=== PATIENT | male | born 1955 | race Caucasian/White ===

== ENCOUNTER 2020-05-02 07:31 | Outpatient (REF) | payer BC, SELFPAY ==
[2020-05-02 11:15] LABS: MANUAL DIFF FLAG NO
[2020-05-02 11:19] LABS: Basophils Percent Auto 0.3 % (0-2); Eosinophils Absolute Auto 0.1 X10*3/uL (0.0-0.4); Eosinophils Percent Auto 1.6 % (0-4); Hematocrit 41.7 % (42-52); Hemoglobin 13.9 g/dl (14.0-18.0); Imm Gran Abs Auto 0.01 X10*3/uL (0.00-0.03); Imm Gran Pct Auto 0.2 % (0.0-0.4); Lymphocytes Absolute Auto 1.5 X10*3/uL (1.2-4.9); Lymphocytes Percent Auto 24.4 % (20-40); Mean Corpuscular HGB Conc 33.3 g/dl (31.0-36.0); Mean Corpuscular Hemoglobin 30.5 pg (27.0-33.0); Mean Corpuscular Volume 91.6 fL (80-98); Mean Platelet Volume 10.8 fL (9.4-12.4); Monocytes Absolute Auto 0.6 X10*3/uL (0.1-1.2); Neutrophils Absolute Auto 4.1 X10*3/uL (2.0-8.3); Neutrophils Percent Auto 64.5 % (45-73); Platelet Count 210 X10*3/uL (160-400); Red Blood Count 4.55 X10*6/uL (4.60-5.80); Red Cell Distribution Width 12.3 % (11.0-16.0); White Blood Count 6.3 X10*3/uL (4.8-10.8)
[2020-05-02 11:45] LABS: Alanine Aminotransferase 38 U/L (0-40); Albumin Level 4.1 g/dL (3.5-5.0); Alkaline Phosphatase 83 U/L (39-117); Anion Gap 11 (12-20); Aspartate Amino Transferase 22 U/L (5-37); Bilirubin Total 1.2 mg/dL (0.0-1.0); Blood Urea Nitrogen 14 mg/dL (9-16); Calcium 10.1 mg/dL (8.4-10.2); Carbon Dioxide 31 mmol/L (22-29); Chloride 101 mmol/L (96-108); Cholesterol 161 mg/dL; Estimated Glomerular Filt Rate > 60; Glucose Fasting 97 mg/dL (60-99); HDL Cholesterol 30 mg/dL; LDL Cholesterol Calculated 105 mg/dl; Potassium 3.9 mmol/l (3.3-5.1); Sodium 139 mmol/L (135-145); Total Protein 6.4 g/dL (6.5-8.0); Triglycerides 132 mg/dL
[2020-05-02 12:08] LABS: Prostate Specific Antigen 1.25 ng/mL (<0.05-4.0); Vitamin D 25-OH Total 30.4 ng/mL (>30)
== END 2020-05-02 07:32 | disposition home or self-care (01) ==
LOC: HO.MANLDS 07:31
PROVIDERS: PCP Internal Medicine; Visit Provider Internal Medicine
DX: Z00.00 Encounter for general adult medical examination without abnormal findings (principal)
CPT/HCPCS: 36415; 80053; 80061; 82306; 84153; 85025

== ENCOUNTER 2020-11-22 07:40 | Outpatient (REF) | payer BC, SELFPAY ==
[2020-11-22 11:48] LABS: Hematocrit 47.9 % (42-52); Hemoglobin 15.5 g/dl (14.0-18.0); Mean Corpuscular HGB Conc 32.4 g/dl (31.0-36.0); Mean Corpuscular Hemoglobin 29.9 pg (27.0-33.0); Mean Corpuscular Volume 92.3 fL (80-98); Platelet Count 206 X10*3/uL (160-400); Red Blood Count 5.19 X10*6/uL (4.60-5.80); Red Cell Distribution Width 12.6 % (11.0-16.0); White Blood Count 7.8 X10*3/uL (4.8-10.8)
[2020-11-22 12:05] LABS: ~HepC Num1 0.06 S/CO (0.00-0.79); ~Hepatitis C Antibody Nonreactive (Nonreactive)
[2020-11-22 12:07] LABS: Prostate Specific Antigen 1.29 ng/mL (<0.05-4.0)
[2020-11-22 12:15] LABS: Alanine Aminotransferase 39 U/L (0-40); Albumin Level 4.2 g/dL (3.5-5.0); Alkaline Phosphatase 100 U/L (39-117); Anion Gap 12 (12-20); Aspartate Amino Transferase 23 U/L (5-37); Bilirubin Total 1.4 mg/dL (0.0-1.0); Blood Urea Nitrogen 13 mg/dL (9-16); Calcium 11.1 mg/dL (8.4-10.2); Carbon Dioxide 30 mmol/L (22-29); Chloride 108 mmol/L (96-108); Cholesterol 183 mg/dL; Estimated Glomerular Filt Rate > 60; Glucose Random 87 mg/dL (60-115); HDL Cholesterol 30 mg/dL; LDL Cholesterol Calculated 103 mg/dl; Potassium 4.7 mmol/L (3.3-5.1); Sodium 145 mmol/L (135-145); Total Protein 6.8 g/dL (6.5-8.0); Triglycerides 252 mg/dL
== END 2020-11-22 07:41 | disposition home or self-care (01) ==
LOC: HO.MANLDS 07:40
PROVIDERS: Visit Provider Internal Medicine
DX: E78.00 Pure hypercholesterolemia, unspecified (principal); Z11.59 Encounter for screening for other viral diseases; Z12.5 Encounter for screening for malignant neoplasm of prostate
CPT/HCPCS: 36415; 80053; 80061; 84153; 85027; 86803

== ENCOUNTER 2021-01-23 11:57 | Outpatient (REF) | payer MEDICARE, BC, SELFPAY ==
[2021-01-23 13:38] LABS: Uric Acid 7.6 mg/dL (3.4-7.0)
== END 2021-01-23 11:58 | disposition home or self-care (01) ==
LOC: HO.MANLDS 11:57
PROVIDERS: PCP Internal Medicine; Visit Provider Internal Medicine
DX: M10.9 Gout, unspecified (principal)
CPT/HCPCS: 36415; 84550

== ENCOUNTER 2022-10-16 07:31 | Outpatient (REF) | payer MEDICARE, BC, SELFPAY ==
[2022-10-16 11:16] LABS: MANUAL DIFF FLAG NO
[2022-10-16 11:34] LABS: Basophils Percent Auto 0.3 % (0-2); Eosinophils Absolute Auto 0.1 X10*3/uL (0.0-0.4); Eosinophils Percent Auto 1.9 % (0-4); Imm Gran Abs Auto 0.01 X10*3/uL (0.00-0.03); Imm Gran Pct Auto 0.1 % (0.0-0.4); Lymphocytes Absolute Auto 1.5 X10*3/uL (1.2-4.9); Lymphocytes Percent Auto 21.6 % (20-40); Mean Corpuscular HGB Conc 32.6 g/dl (31.0-36.0); Mean Corpuscular Hemoglobin 29.8 pg (27.0-33.0); Mean Corpuscular Volume 91.3 fL (80.0-98.0); Mean Platelet Volume 11.4 fL (9.4-12.4); Monocytes Absolute Auto 0.6 X10*3/uL (0.1-1.2); Monocytes Percent Auto 9.1 % (2-11); Neutrophils Absolute Auto 4.6 x10*3/uL (2.0-8.3); Platelet Count 185 X10*3/uL (160-400); Red Blood Count 5.04 X10*6/uL (4.60-5.80); Red Cell Distribution Width 12.7 % (11.0-16.0); White Blood Count 6.9 X10*3/uL (4.8-10.8)
[2022-10-16 12:14] LABS: Estimated Average Glucose 94 mg/dL; Hemoglobin A1c % 4.9 %
[2022-10-16 12:43] LABS: Alanine Aminotransferase 40 U/L (0-40); Albumin Level 4.1 g/dL (3.5-5.0); Alkaline Phosphatase 104 U/L (39-117); Anion Gap 11 (12-20); Aspartate Amino Transferase 21 U/L (5-37); Bilirubin Total 1.6 mg/dL (0.0-1.0); Blood Urea Nitrogen 12 mg/dL (9-16); Calcium 11.6 mg/dL (8.4-10.2); Carbon Dioxide 31 mmol/L (22-29); Chloride 107 mmol/L (96-108); Cholesterol 152 mg/dL; Estimated Glomerular Filt Rate > 60; Glucose Random 87 mg/dL (60-115); HDL Cholesterol 30 mg/dL; LDL Cholesterol Calculated 84 mg/dl; Potassium 4.5 mmol/L (3.3-5.1); Sodium 144 mmol/L (135-145); Total Protein 6.5 g/dL (6.5-8.0); Triglycerides 191 mg/dL; Uric Acid 7.7 mg/dL (3.4-7.0)
== END 2022-10-16 07:32 | disposition home or self-care (01) ==
LOC: HO.MANLDS 07:31
PROVIDERS: Visit Provider Internal Medicine
DX: E78.00 Pure hypercholesterolemia, unspecified (principal); E88.81 Metabolic syndrome and other insulin resistance; I10 Essential (primary) hypertension; M10.071 Idiopathic gout, right ankle and foot
CPT/HCPCS: 36415; 80053; 80061; 83036; 84550; 85025

== ENCOUNTER 2023-02-08 14:43 | Outpatient (REF) | payer MEDICARE, BC, SELFPAY ==
[2023-02-08 17:22] LABS: Basophils Percent Auto 0.2 % (0-2); Eosinophils Absolute Auto 0.1 X10*3/uL (0.0-0.4); Eosinophils Percent Auto 0.8 % (0-4); Hematocrit 41.8 % (42.0-52.0); Hemoglobin 14.6 g/dl (14.0-18.0); Imm Gran Abs Auto 0.02 X10*3/uL (0.00-0.03); Imm Gran Pct Auto 0.2 % (0.0-0.4); Lymphocytes Absolute Auto 1.5 X10*3/uL (1.2-4.9); Lymphocytes Percent Auto 17.1 % (20-40); MANUAL DIFF FLAG NO; Mean Corpuscular HGB Conc 34.9 g/dl (31.0-36.0); Mean Corpuscular Hemoglobin 30.2 pg (27.0-33.0); Mean Corpuscular Volume 86.4 fL (80.0-98.0); Monocytes Absolute Auto 0.8 X10*3/uL (0.1-1.2); Neutrophils Absolute Auto 6.3 x10*3/uL (2.0-8.3); Neutrophils Percent Auto 72.7 % (45-73); Platelet Count 214 X10*3/uL (160-400); Red Blood Count 4.84 X10*6/uL (4.60-5.80); Red Cell Distribution Width 12.2 % (11.0-16.0); White Blood Count 8.7 X10*3/uL (4.8-10.8)
[2023-02-08 18:18] LABS: Erythrocyte Sedimentation Rate 4 MM/HR (0-15)
[2023-02-08 19:13] LABS: Prostate Specific Antigen 1.44 ng/mL (<0.05-4.0)
[2023-02-08 19:50] LABS: Alanine Aminotransferase 78 U/L (0-40); Albumin Level 4.4 g/dL (3.5-5.0); Alkaline Phosphatase 102 U/L (39-117); Amylase 62 U/L (28-100); Anion Gap 14 (12-20); Aspartate Amino Transferase 40 U/L (5-37); Bilirubin Total 1.8 mg/dL (0.0-1.0); Blood Urea Nitrogen 14 mg/dL (9-16); C Reactive Protein 0.25 mg/dL (< or = 0.50); Calcium 16.4 mg/dL (8.4-10.2); Carbon Dioxide 27 mmol/L (22-29); Chloride 103 mmol/L (96-108); Estimated Glomerular Filt Rate 59; Ferritin 484 ng/mL (20-250); Free T4 (Free Thyroxine) 1.03 ng/dL (0.71-1.85); Gamma Glutamyl Transpeptidase 39 U/L (11-51); Glucose Random 100 mg/dL (60-115); Insulin 15 uU/mL (2-29); Iron 66 mcg/dL (45-160); Lipase 34 U/L (8-78); Percent Iron Saturation 24 % (15-50); Potassium 3.3 mmol/L (3.3-5.1); Sodium 141 mmol/L (135-145); Thyroid Stimulating Hormone 3.17 uIU/mL (0.32-4.0); Total Iron Binding Capacity 273 mcg/dL (228-428); Unsaturated Iron Binding 207 ug/dL
[2023-02-13 06:33] LABS: Thyroid Peroxidase Antibodies 184 IU/mL (<9)
== END 2023-02-08 14:44 | disposition home or self-care (01) ==
LOC: HO.MANLDS 14:43
PROVIDERS: Visit Provider Physician Assistant
DX: Z12.5 Encounter for screening for malignant neoplasm of prostate (principal); R63.4 Abnormal weight loss; K56.49 Other impaction of intestine
CPT/HCPCS: 36415; 80053; 82150; 82728; 82977; 83525; 83540; 83690; 84153; 84439; 84443; 85025; 85652; 86140; 86376

== ENCOUNTER 2023-02-12 14:04 | Outpatient (REF) | payer MEDICARE, BC, SELFPAY ==
[2023-02-12 17:52] LABS: Phosphorus 1.6 mg/dL (2.7-4.5)
[2023-02-15 19:33] LABS: PTHI 482 pg/mL (16-77)
== END 2023-02-12 14:05 | disposition home or self-care (01) ==
LOC: HO.MANLDS 14:04
PROVIDERS: Visit Provider Physician Assistant
DX: E83.52 Hypercalcemia (principal)
CPT/HCPCS: 36415; 82330; 83970; 84100

== ENCOUNTER 2023-08-26 07:33 | Outpatient (REF) | payer MEDICARE, BC, SELFPAY ==
[2023-08-26 13:20] LABS: MANUAL DIFF FLAG NO
[2023-08-26 13:37] LABS: Basophils Percent Auto 0.3 % (0-2); Eosinophils Absolute Auto 0.2 X10*3/uL (0.0-0.4); Eosinophils Percent Auto 2.2 % (0-4); Hematocrit 41.4 % (42.0-52.0); Hemoglobin 13.5 g/dl (14.0-18.0); Imm Gran Abs Auto 0.03 X10*3/uL (0.00-0.03); Imm Gran Pct Auto 0.4 % (0.0-0.4); Lymphocytes Absolute Auto 1.8 X10*3/uL (1.2-4.9); Mean Corpuscular HGB Conc 32.6 g/dl (31.0-36.0); Mean Corpuscular Hemoglobin 29.7 pg (27.0-33.0); Mean Corpuscular Volume 91.2 fL (80.0-98.0); Mean Platelet Volume 10.2 fL (9.4-12.4); Monocytes Absolute Auto 0.7 X10*3/uL (0.1-1.2); Monocytes Percent Auto 9.2 % (2-11); Neutrophils Absolute Auto 4.7 x10*3/uL (2.0-8.3); Neutrophils Percent Auto 63.9 % (45-73); Platelet Count 219 X10*3/uL (160-400); Red Blood Count 4.54 X10*6/uL (4.60-5.80); Red Cell Distribution Width 13.9 % (11.0-16.0); White Blood Count 7.4 X10*3/uL (4.8-10.8)
[2023-08-26 14:33] LABS: Prostate Specific Antigen 1.93 ng/mL (<0.05-4.0); Vitamin B12 639 pg/mL (200-900)
[2023-08-26 14:37] LABS: Alanine Aminotransferase 28 U/L (0-40); Albumin Level 4.2 g/dL (3.5-5.0); Alkaline Phosphatase 70 U/L (39-117); Anion Gap 14 (12-20); Aspartate Amino Transferase 20 U/L (5-37); Bilirubin Total 0.6 mg/dL (0.0-1.0); Blood Urea Nitrogen 18 mg/dL (9-16); Calcium 9.1 mg/dL (8.4-10.2); Carbon Dioxide 31 mmol/L (22-29); Chloride 104 mmol/L (96-108); Cholesterol 187 mg/dL (<200); Estimated Glomerular Filt Rate 52; Glucose Random 78 mg/dL (60-115); HDL Cholesterol 39 mg/dL (>40); LDL Cholesterol Calculated 115 mg/dL (<100); Potassium 4.3 mmol/L (3.3-5.1); Sodium 145 mmol/L (135-145); Total Protein 7.1 g/dL (6.5-8.0); Triglycerides 168 mg/dL (<150)
[2023-09-03 06:24] LABS: Vitamin B1 51 nmol/L (8-30)
== END 2023-08-26 07:34 | disposition home or self-care (01) ==
LOC: HO.MANLDS 07:33
PROVIDERS: Visit Provider Internal Medicine
DX: Z12.5 Encounter for screening for malignant neoplasm of prostate (principal); E78.2 Mixed hyperlipidemia; E51.9 Thiamine deficiency, unspecified; E83.42 Hypomagnesemia
CPT/HCPCS: 36415; 80053; 80061; 82607; 83735; 84153; 84425; 85025

== ENCOUNTER 2024-08-05 07:34 | Outpatient (REF) | payer MEDICARE, BC, SELFPAY ==
--- OUTSIDE RECORDS SUMMARY | 2024-08-05 07:39 | XMS_ITS | Data Portability ---
Author Organization [facility] Home Service Address [address] [place] [address] Assessment Encounter Date Assessment Date Assessment LastModified by Organization Details LastModified Time 02/20/2023 02/20/2023 [id number] [place] [id number] (COMPENSATION MANAGER) MDM MODERATE MUST MEET 2 OUT OF 3 ELEMENTS: PROBLEMS, DATA OR RISK ELEMENT 1: PROBLEMS ADDRESSED 1 OR MORE CHRONIC ILLNESS WITH EXACERBATION OR 2 OR MORE STABLE CHRONIC ILLNESSES OR 1 UNDIAGNOSED NEW PROBLEM OR 1 ACUTE ILLNESS W/SYMPTOMS OR 1 ACUTE COMPLICATED INJURY ELEMENT 2: DATA MUST MEET 1 OF 3 CATEGORIES CATEGORY 1: REVIEW OF PRIOR EXTERNAL NOTES, REVIEW OF RESULTS, ORDERING OF EACH TEST, ASSESSMENT REQUIRING INDEPENDENT HISTORIAN OR CATEGORY 2: INDEPENDENT INTERPRETATION OF TESTS BY ANOTHER PHYSICIAN OR SPECIALIST OR CATEGORY 3: DISCUSSION OF MGT OR TEST INTERPRETATION W/EXTERNAL PHYSICIAN OR SPECIALIST ELEMENT 3: RISK RISK OF COMPLICATIONS AND/OR MORBIDITY OR MORTALITY OF PATIENT MANAGEMENT PROVIDER MUST THOROUGHLY DOCUMENT EACH ELEMENT THAT IS COVERED Not available 02/20/2023 14:22:58 08/21/2023 08/21/2023 [id number] [place] [id number] (COMPENSATION MANAGER) MDM MODERATE MUST MEET 2 OUT OF 3 ELEMENTS: PROBLEMS, DATA OR RISK ELEMENT 1: PROBLEMS ADDRESSED 1 OR MORE CHRONIC ILLNESS WITH EXACERBATION OR 2 OR MORE STABLE CHRONIC ILLNESSES OR 1 UNDIAGNOSED NEW PROBLEM OR 1 ACUTE ILLNESS W/SYMPTOMS OR 1 ACUTE COMPLICATED INJURY ELEMENT 2: DATA MUST MEET 1 OF 3 CATEGORIES CATEGORY 1: REVIEW OF PRIOR EXTERNAL NOTES, REVIEW OF RESULTS, ORDERING OF EACH TEST, ASSESSMENT REQUIRING INDEPENDENT HISTORIAN OR CATEGORY 2: INDEPENDENT INTERPRETATION OF TESTS BY ANOTHER PHYSICIAN OR SPECIALIST OR CATEGORY 3: DISCUSSION OF MGT OR TEST INTERPRETATION W/EXTERNAL PHYSICIAN OR SPECIALIST ELEMENT 3: RISK RISK OF COMPLICATIONS AND/OR MORBIDITY OR MORTALITY OF PATIENT MANAGEMENT PROVIDER MUST THOROUGHLY DOCUMENT EACH ELEMENT THAT IS COVERED Not available 08/21/2023 14:24:20 01/24/2024 01/24/2024 [address] [place] [address] (COMPENSATION MANAGER) MDM MODERATE MUST MEET 2 OUT OF 3 ELEMENTS: PROBLEMS, DATA OR RISK ELEMENT 1: PROBLEMS ADDRESSED 1 OR MORE CHRONIC ILLNESS WITH EXACERBATION OR 2 OR MORE STABLE CHRONIC ILLNESSES OR 1 UNDIAGNOSED NEW PROBLEM OR 1 ACUTE ILLNESS W/SYMPTOMS OR 1 ACUTE COMPLICATED INJURY ELEMENT 2: DATA MUST MEET 1 OF 3 CATEGORIES CATEGORY 1: REVIEW OF PRIOR EXTERNAL NOTES, REVIEW OF RESULTS, ORDERING OF EACH TEST, ASSESSMENT REQUIRING INDEPENDENT HISTORIAN OR CATEGORY 2: INDEPENDENT INTERPRETATION OF TESTS BY ANOTHER PHYSICIAN OR SPECIALIST OR CATEGORY 3: DISCUSSION OF MGT OR TEST INTERPRETATION W/EXTERNAL PHYSICIAN OR SPECIALIST ELEMENT 3: RISK RISK OF COMPLICATIONS AND/OR MORBIDITY OR MORTALITY OF PATIENT MANAGEMENT PROVIDER MUST THOROUGHLY DOCUMENT EACH ELEMENT THAT IS COVERED Not available 01/24/2024 16:02:00 06/19/2024 06/19/2024 [address] [place] [address] (COMPENSATION MANAGER) MDM MODERATE MUST MEET 2 OUT OF 3 ELEMENTS: PROBLEMS, DATA OR RISK ELEMENT 1: PROBLEMS ADDRESSED 1 OR MORE CHRONIC ILLNESS WITH EXACERBATION OR 2 OR MORE STABLE CHRONIC ILLNESSES OR 1 UNDIAGNOSED NEW PROBLEM OR 1 ACUTE ILLNESS W/SYMPTOMS OR 1 ACUTE COMPLICATED INJURY ELEMENT 2: DATA MUST MEET 1 OF 3 CATEGORIES CATEGORY 1: REVIEW OF PRIOR EXTERNAL NOTES, REVIEW OF RESULTS, ORDERING OF EACH TEST, ASSESSMENT REQUIRING INDEPENDENT HISTORIAN OR CATEGORY 2: INDEPENDENT INTERPRETATION OF TESTS BY ANOTHER PHYSICIAN OR SPECIALIST OR CATEGORY 3: DISCUSSION OF MGT OR TEST INTERPRETATION W/EXTERNAL PHYSICIAN OR SPECIALIST ELEMENT 3: RISK RISK OF COMPLICATIONS AND/OR MORBIDITY OR MORTALITY OF PATIENT MANAGEMENT PROVIDER MUST THOROUGHLY DOCUMENT EACH ELEMENT THAT IS COVERED Not available 06/19/2024 11:19:02 Plan of Treatment Reminders Order Date Submit Date Provider Last Modified By Organization Details Last Modified Time Details Appointments MEDICARE ANNUAL WELLNESS 2024 11:00A M DR DEVINE Not available Not available Not available Lab lipid panel, blood 2024 025 [facility], [address] [place] [address], [place], [id number], 06/19/2024 11:21:48 CMP, serum or plasma 2024 025 [facility], [address] [place] [address], [place], [address], 06/19/2024 11:21:49 CBC 2024 025 [facility], [address] [place] [address], [id number], 06/19/2024 11:21:48 PSA, serum or plasma 2024 025 [facility], [address] [place] [address], [id number], 06/19/2024 11:21:49 TSH, serum or plasma 2024 025 [facility], [address] [place] [address], [id number], 06/19/2024 11:21:48 vitamin B1 (thiamine ), blood 2023 024 [facility], [address] [place] [address], [id number], 09/03/2023 11:12:35 lipid panel, blood 2023 024 [facility], [address] [place] [address], [id number], 08/21/2023 14:37:45 CMP, serum or plasma 2023 024 [facility], [address] [place] [address], [id number], 08/27/2023 11:27:35 PSA, serum or plasma 2023 024 [facility], [address] [place] [address], [address], 08/21/2023 14:37:44 CBC 2023 024 [facility], [address] [place] [address], [id number], 08/21/2023 14:37:44 magnesium , serum or plasma 2023 024 [facility], [address] [facility], [place], [address], 08/21/2023 14:37:44 vitamin B12, serum 2023 024 [facility], [address] [facility], [place], [address], 08/21/2023 14:37:45 Referral endocrino logy referral 2022 023 elias Zaragoza MD, [address] [place], [address], 02/26/2023 15:53:02 Procedures None recorded. Surgeries None recorded. Imaging None recorded. Medication Orders lorazepam 0.5 mg tablet 2022 023 [id number], [address] [place] [address], [id number], 04/02/2023 15:24:49 escitalop javier 5 mg tablet 2022 023 [facility] #[id number], [address] [place] [address], [id number], 04/02/2023 15:28:30 Patient TargetsNo targets recorded. Patient Instructions Encounter Date Encounter Id Patient Instructions Last Modified By Organization Details Last Modified Time 02/20/2023 [id number] chest pain: care instructions Not available 02/20/2023 14:29:42 constipation: care instructions Not available 02/20/2023 14:29:42 hypercalcemia: care instructions Not available 02/20/2023 14:29:42 01/24/2024 [id number] hyperparathyroid i sm: care instructions Not available 01/24/2024 16:05:08 parathyroidectom y : before your surgery Not available 01/24/2024 16:05:09 high blood pressure: care instructions Not available 01/24/2024 16:05:09 learning about high blood pressure Not available 01/24/2024 16:05:08 Reason for Referral Endocrinology Referral for Pieter rapp Referring Physician: Toni Devine, Internal Medicine, Encounter Date: 02/20/2023 Results Created Date Observation Date Name Description Value Unit Range Abnormal Flag Note LastModifiedBy Organization Detail LastModifiedTime 05/30/20 23 05/30/2023 XR, foot, 3 or more view No observ ation record ed. [facility] [address] [place] [address], [address], 05/31/2023 08:48:53 05/30/20 23 05/30/2023 XR, foot, 3 or more view No observ ation record ed. [facility] [address] [place] [address], [id number], 05/31/2023 10:19:40 Result Notes None recorded. Problems Name Problem SNOMED Code Status Onset Date Resolution Date Notes Provider Name and Address Organization Details Recorded Time Hiatal hernia 70464482 Active 2019 Not Available [facility] 11:12:50 Acute bacteria l sinusiti s 88801701 Active 2022 TIN SOUSA [address] [place] [address], [phone], [facility] 3 15:28:47 Bleeding external hemorrho ids 22734763 Active 2022 Toni Devine DO [address] [place], [address], [facility] 3 14:21:11 Breath smells unpleasa nt 60333354 Active 2022 TIN SOUSA [address] [place] [address], [address], [facility] 3 14:26:59 Abnormal weight loss 623434143 Active 2022 TIN SOUSA [address] [place] [address], [address], [facility] 3 14:27:34 Impactio n of intestin e 75608346 Active 2022 TIN SOUSA [address] [place] [address], , [facility] 3 14:28:42 Abdomina l pain 86725805 Active 2022 TIN SOUSA [address] [place] [address], , [facility] 3 14:30:16 Hypercal cemia 50282825 Active 2022 TIN SOUSA [address] [place] [address], , [facility] 3 12:48:36 Hyperpar athyroid ism 22832220 Active 2022 Toni Devine, DO [address] [place] [address], , [facility] 3 14:19:38 Chest pain 08719204 Active 2022 Toni Devine DO [address] [place] [address], , [facility] 3 14:23:04 Constipa tion 31736032 Active 2022 Toni Devine DO [address] [place] [address], , [facility] 3 14:24:46 Panic disorder 288831245 Active 2022 TIN SOUSA [address] [place] [address], , [facility] 3 15:18:33 Essentia l hyperten rachel 90792843 Active 2022 TIN SOUSA [address] [place] [address], , [facility] 3 15:20:21 Anxiety 42349877 Active 2022 TIN SOUSA [address] [place], [address], [facility] 3 15:24:21 Thiamine deficien cy 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 Active 2022 TIN SOUSA [address] [place], [address], [facility] 3 11:28:45 Pain in both feet 21885455566 369879 Active 2022 TIN SOUSA [address] [place] [address], [address], [facility] 3 10:42:09 Chronic gouty arthriti s 42651647 Active 2022 TIN SOUSA [address] [place] [address], [address], [facility] 3 10:20:14 Hypomagn esemia 459030242 Active 2023 Toni Devine, DO [address] [place] [address], [address], [facility] 4 14:19:00 Subtotal parathyr oidectom y Active 2022 Toni Devine, DO [address] [place] [address], [address], [facility] 4 14:24:00 Primary hypomagn esemia 92235438 Active 2022 Toni Devine, DO [address] [place] [address], [address], [facility] 4 14:26:26 Hypothyr oidism 16078650 Active 2023 Toni Devine DO [address] [place] [address], [address], [facility] 4 16:03:57 Hypercho lesterol emia 39914685 Active 2017 Not Available [facility] 1 11:12:50 Gout 60798966 Active 2017 Not Available [facility] 11:12:50 Gastroes ophageal reflux disease 620372876 Active 2017 Not Available [facility] 11:12:50 Metaboli c syndrome X 664201771 Active 2017 Not Available [facility] 11:12:50 Total bilirubi n above referenc e range 64526786215 9108 Active 2017 Not Available [facility] 11:12:50 Gilbert' s syndrome 93295892 Active 2017 questiona ble Not Available [facility] 11:12:50 Problem Notes None recorded. Procedures Surgical History Date Name Laterality Status Provider Name and Address Organization Details Recorded Time 8 Colonoscopy completed Yulia Cabrales [facility] 06/24/2019 08:48:08 Imaging Results Imaging Date Name Status LastModified by Organiz ation Details LastModified Time 05/30/2023 XR, foot, [facility] [address] [place] [address], [address], 05/31/2023 08:48:53 05/30/2023 XR, foot, 3 or more view [facility] [address] [place] [address], [id number], 05/31/2023 10:19:40 Procedure Notes None recorded. Medical Equipment None Reported. Allergies No known drug allergies Medications Name Sig Start Date Stop Date Status Note LastModified by Organization Details LastModified Time metoprolol succinate ER 50 mg tablet,exte nded release 24 hr Take 1 tablet every day by oral route for 90 days. 01/23 completed Not Available Not Available Not Available prednisone 20 mg tablet TAKE 1 TABLET BY MOUTH EVERY DAY FOR 10 DAYS 06/26 completed Not Available Not Available Not Available metoprolol succinate ER 100 mg tablet,exte nded release 24 hr TAKE 1 TABLET DAILY DIRECTED active Not Available Not Available No t Available thiamine HCl (vitamin B1) 100 mg tablet TAKE 1 TABLET BY MOUTH DAILY active Not Available Not Available No t Available amlodipine 5 mg tablet TAKE 1 TABLET BY MOUTH EVERY DAY 04/22 completed Not Available Not Available Not Available ciprofloxac in 500 mg tablet TAKE 1 TABLET BY MOUTH EVERY 12 HOURS FOR 7 DAYS 10/23 completed Not Available Not Available Not Available omeprazole 40 mg capsule,del ayed release Take 1 capsule every day by oral route. active Not Available Not Available No t Available aspirin 81 mg tablet,phoebe yed release Take 1 tablet every day by oral route for 30 days. 11/16 completed Not Available Not Available Not Available acetaminoph en 500 mg tablet TAKE 2 TABLETS BY MOUTH THREE TIMES DAILY NEEDED FOR PAIN 01/23 completed Not Available Not Available Not Available hydrocortis one 2.5 % topical cream with perineal applicator APPLY THIN LAYER TOPICALLY TO THE AFFECTED AREA 2 TO 4 TIMES DAILY FOR 10 DAYS 01/23 completed Not Available Not Available Not Available levothyroxi ne 88 mcg tablet TAKE 1 TABLET BY MOUTH EVERY DAY 01/05 completed Not Available Not Available Not Available magnesium oxide 400 mg (241.3 mg magnesium) tablet TAKE 2 TABLETS BY MOUTH EVERY DAY active Not Available Not Available No t Available lorazepam 0.5 mg tablet Take 1 tablet twice a day by oral route as needed for 30 days. 2024 active Not Available Not Available Not Avai lable amlodipine 10 mg tablet TAKE 1 TABLET DAILY active Not Available Not Available No t Available levothyroxi ne 50 mcg tablet TAKE 1 TABLET BY MOUTH EVERY DAY 01/05 completed Not Available Not Available Not Available levothyroxi ne 125 mcg tablet active Not Available Not Available Not Available lisinopril 10 mg tablet 04/02 completed Not Available Not Available Not Available valsartan 320 mg tablet take 1 po qd 02/04 completed Not Available Not Available Not Available indomethaci n 25 mg capsule TAKE 1 CAPSULE BY MOUTH THREE TIMES DAILY FOR 7 DAYS NEEDED 04/24 completed Not Available Not Available Not Available diclofenac sodium 75 mg tablet,phoebe yed release Take 1 tablet by oral route for 14 days. 12/16 completed Not Available Not Available Not Available hydrochloro thiazide 25 mg tablet Take 1 tablet every day by oral route for 90 days. 05/31 completed Not Available Not Available Not Available lorazepam 1 mg tablet PRN 11/30 completed Not Available Not Available Not Available ibuprofen 600 mg tablet TAKE 1 TABLET BY MOUTH THREE TIMES DAILY 01/23 completed Not Available Not Available Not Available methylpredn isolone 4 mg tablets in a dose pack FOLLOW PACKAGE DIRECTION S 10/23 completed Not Available Not Available Not Available losartan 100 mg tablet TK 1 T PO QD 05/31 completed Not Available Not Available Not Available calcitriol 0.25 mcg capsule TAKE 1 CAPSULE BY MOUTH DAILY active Not Available Not Available No t Available levothyroxi ne 112 mcg tablet TAKE 1 TABLET BY MOUTH EVERY DAY active Not Available Not Available No t Available oxycodone 5 mg tablet TAKE 1 TABLET BY MOUTH EVERY 6 HOURS NEEDED FOR PAIN THE. MAY FILL IN AN AMOUNT. NOT TO EXCEED THE RECOMMEND ED FULL QUANTITY INDICATED 06/26 completed Not Available Not Available Not Available escitalopra m 5 mg tablet Take 1 tablet every day by oral route for 30 days. 2024 active Not Available Not Available Not Avai lable Colace 01/23 completed Not Available Not Available Not Available Miralax 01/23 completed Not Available Not Available Not Available hydrochloro thiazide 12.5 mg tablet Take 1 tablet every day by oral route for 90 days. 05/10 completed Not Available Not Available Not Available Vitals Date Recorded Body height Heart rate Oxygen saturation Oxygen saturation in Arterial blood by Pulse oximetry Systolic blood pressure Diastolic blood pressure Provider Name and Address Organization Details Last Updated DateTime 3 181.61 cm 85 /min 99 % 99 % 162 mm[Hg] 62 mm[Hg] Tracy Saxena [facility] 3 14:03:17 Date Recorded Body height Body mass index (BMI) Body weight Heart rate Oxygen saturation Oxygen saturation in Arterial blood by Pulse oximetry Systolic blood pressure Diastolic blood pressure Provider Name and Address Organization Details Last Updated DateTime 3 181.61 cm 26.8 kg/m2 38026.2 3 g 78 /min 98 % 98 % 166 mm[Hg] 78 mm[Hg] Stella Cisneros [facility] 3 15:06:21 Date Recorded Body height Body mass index (BMI) Body weight Heart rate Oxygen saturation Oxygen saturation in Arterial blood by Pulse oximetry Systolic blood pressure Diastolic blood pressure Provider Name and Address Organization Details Last Updated DateTime 4 181.61 cm 28.9 kg/m2 80870.4 g 82 /min 98 % 98 % 130 mm[Hg] 86 mm[Hg] Tyson Miller [place] [facility] 4 15:45:26 Date Recorded Body height Body mass index (BMI) Body weight Systolic blood pressure Diastolic blood pressure Provider Name and Address Organization Details Last Updated DateTime 06/19/2024 181.61 cm 32.5 kg/m2 631688.8 g 150 mm[Hg] 78 mm[Hg] Bia Mackkendell Palmer [facility] 5 10:50:48 Social History Question Answer Notes LastModified by Organizat ion Details LastModified Time Tobacco Smoking Status Never Smoker Not Available [facility] 04/12/2020 03:36:24 What Was The Date Of Your Most Recent Tobacco Screening? 06/19/2024 Information not available 06/19/2024 Do You Or Have You Ever Used Any Other Forms Of Tobacco Or Nicotine? No [email or web address] Information not available 02/08/2023 Sex: Unknown Functional Status None recorded. Mental Status None recorded. Family History Nothing Reported. Medical History No medical history recorded. Immunizations Vaccine Type Date Status Note Provider Nam e and Address Organization Details Recorded Time COVID-19, mRNA, LNP-S, PF, 100 mcg/0.5mL dose or 50 mcg/0.25mL dose 08/11/2020 completed Not Available [facility] 3 07:22:02 COVID-19, mRNA, LNP-S, PF, 100 mcg/0.5mL dose or 50 mcg/0.25mL dose 09/08/2020 completed Not Available [facility] 3 07:22:02 Past Encounters Encounter ID Performer Location Encounter Start Date Encounter Closed Date Diagnosis/Indication Diagnosis SNOMED-CT Code Diagnosis ICD10 Code Diagnosis Note [id number] DO Keron Garner Internal [facility] [address] [facility],[place] [address] 12/16/2017 14:43:03 12/16/2017 15:15:03 Gastroesophageal reflux disease 168534171 K21.9 cont with omeprazole Hypertensive disorder 38 672914 I10 has been excellent despite eating poorly and no exercise and etoh use Hip pain 82204935 M25.55 2 states not bad enough to do anything about but states will alert me to get xray if still present at end of next month [id number] Toni Devine [facility] [address] [facility], [place] [address] 06/23/2018 14:25:53 06/23/2018 15:26:47 Hypertensive disorder 44368122 I10 has been excellent despite eating poorly and no exercise and etoh use Metabolic syndrome X 237 714090 E88.81 no major issues but would like to get lab work Hypercholesterolemia 136 17089 E78.00 will need fbw Hepatitis C screening 41 0840618 Z11.59 next draw Gastroesop hageal reflux disease 721213127 K21.9 cont with omeprazole 40 mg and will have him take a secondary dose in the afternoon Anxiety 52721925 F41.9 [id number] Toni Devine [facility] [address] [facility], [employer] [place] [address] 10/29/2018 13:36:02 10/29/2018 14:08:24 Hypertensive disorder 30601907 I10 has been excellent despite eating poorly and no exercise and etoh use Hypercholesterolemia 136 57484 E78.00 will need fbw Metabolic syndrome X 237 477440 E88.81 no major issues but would like to get lab work [id number] Toni Devine [facility] [address] [facility], [employer] [place] [facility] [place] [address] 04/07/2019 11:24:19 04/07/2019 12:10:34 Gastroesophageal reflux disease 744275350 K21.9 cont with omeprazole 40 mg and will have him take a secondary dose in the afternoon Hypertensive disorder 38 894228 I10 despite eating poorly and no exercise and etoh use and bp had been markedly elevated in the hospital Atypical chest pain 1025 44556 R07.89 had an ett and workup in hosp cardililgy informed him that this was not cardiac in nature wondering re dysphagia or even stricture will need referral to GI believe he needs a EGD [id number] Toni Devine [facility] [address] [facility],[place] [address] 06/24/2019 10:39:20 06/24/2019 12:06:49 Hypertensive disorder 84020312 I10 despite eating poorly itis not too high he is cranked up today will have him keep an eye on bp make a record of bp and recheck in a few months Metabolic syndrome X 237 246668 E88.81 no major issues but would like to get lab work Hypercholesterolemia 136 43965 E78.00 will need fbw [id number] Toni Devine [facility] [address] [facility] [address],[place] [address] 11/17/2019 09:54:36 11/17/2019 10:49:33 Adult health examination 999453875 Z00.00 doing fairly well will need lab in the fall Hypertensive disorder 38 306395 I10 despite eating poorly his bp remains borderline will increase the hctz will have him keep an eye on bp make a record of bp and recheck in a few months [id number] Toni Devine [facility] [address] [facility],[place] [address] 05/11/2020 09:42:40 05/11/2020 10:23:34 Metabolic syndrome X 317368724 E88.81 no major issues but would like to get lab work Hypertensive disorder 38 821642 I10 still running high and still tachy we antoni stop the losartan and hctz and begin metoprolol Hepatitis C screening 41 2176216 Z11.59 next draw Hypercholesterolemia 136 51881 E78.00 will need fbw Gout 98691135 M10.9 stable and has not had any episodes [id number] Toni Devine DO [facility] [address] [facility] [address],[place] [address] 05/31/2020 16:22:47 05/31/2020 17:01:02 Hypertensive disorder 28743969 I10 bp is much improved will cont the metoprolol 50 [id number] Toni Devine [facility] [address] [facility] [address],[place] [address] 11/30/2020 10:25:26 11/30/2020 12:05:31 Hypercholesterolemia 73178929 E78.00 will need fbw Gastroesop hageal reflux disease 748836633 K21.9 cont with omeprazole 40 mg and will have him take a secondary dose in the afternoon Hypertensive disorder 38 102946 I10 bp is now uncontroll ed and he is still on metoprolol 50mg will change the metoprolol [id number] Toni Devine [facility] [address] [facility],[place] [address] 01/23/2021 11:23:23 01/23/2021 11:52:28 Gastroesophageal reflux disease 001782260 K21.9 cont with omeprazole 40 mg and will have him take a secondary dose in the afternoon Hypertensive disorder 38 033013 I10 bp is now uncontroll ed and he is still on metoprolol 50mg will change the metoprolol Hypercholesterolemia 136 08953 E78.00 will need fbw Gout 08908076 M10.9 here for rechk given the recent bout of gout needs to adjust diet but we will also check the uric ac level [id number] Toni Devine [facility] Medicine [address] [facility],[place] [address] 05/29/2021 08:22:25 05/29/2021 13:38:02 Hypertensive disorder 84184485 I10 bp is now uncontroll ed and he is still on metoprolol 50mg will change the metoprolol Gout 38426690 M10.071 here for rechk given the recent recurrent bout of gout of the right gfreat toe needs to adjust diet but we will also check the uric ac level Pain of ri ght knee joint [id number] 01643 M25.561 getting worse [place] with twoisting motion [id number] Toni Devine [facility] Internal Medicine [address] [facility],[place] [address] 04/24/2022 14:13:23 04/24/2022 16:13:29 Active or passive immunization [id number] Z23 patient advised he is due for tdap, pneu & shingles Adult heal th examination 134678627 Z00.01 doing fairly well will need lab in the fall Screening for malignant neoplasm of colon 345018569 Z12.11 he is up to date Advance care planning 71 5659311 Z71.89 .done Hypercholesterolemia 136 52235 E78.00 will need fbw Metabolic syndrome X 237 155438 E88.81 no major issues but would like to get lab work Hypertensive disorder 38 826318 I10 bp is now uncontroll ed and he is still on metoprolol 50mg will change the metoprolol Gout 77010691 M10.071 here for rechk given the recent recurrent bout of gout of the right gfreat toe needs to adjust diet but we will also check the uric ac level [address]22 TIN SOUSA [facility] Internal Medicine [address] [facility] [address],[place] [address] 09/26/2022 09:39:24 09/26/2022 15:40:50 Acute bacterial sinusitis 20812851 J01.01 will start medrol and cipro [id number] Toni Devine DO [facility] Internal Medicine [address] [facility],[place] [address] 10/23/2022 13:51:47 10/23/2022 14:52:51 Bleeding external hemorrhoids 03188620 K64.4 will give him some cortiosone topical to help clear this up 87694 TIN SOUSA [facility] Internal Medicine [address] [facility] [address],[place] [address] 02/08/2023 14:07:21 02/08/2023 15:06:23 Gastroesophageal reflux disease 900724918 K21.9 needs new endoscope Hypercholesterolemia 136 00332 E78.2 stable Hypertensive disorder 38 325583 I10 adjusted meds Metabolic syndrome X 237 346066 E88.81 stable Breath sme lls unpleasant 90223016 R19.6 could be related to GI (epigastri c pain) Abnormal weight loss 267 220246 R63.4 will set up with lab work for patient as well Hypertensive urgency 443 193762 I16.0 will add amlodipine to his current med list Impaction of intestine 50241784 K56.49 will set up with lab work Abdominal pain 93645399 R10.0 [place] with GI 94258 Toni Devine DO [facility] Internal Medicine [address] [facility] [address],[place] [address] 02/20/2023 13:53:06 02/20/2023 14:41:35 Hypercholesterolemia 69489649 E78.2 will need fbw Hypertensive disorder 38 265459 I10 bp is now uncontroll ed and he is still on metoprolol 50mg will change the metoprolol Hyperparathyroidism 6699 9008 E21.3 he antoni be sent to endocrinol [facility] for primary hyperparat hy and given a normal Ca++ levels we will wait for end Chest pain 60535874 R07. 9 ruled out for ACS or cad Constipation 02523592 K5 9.00 using miralax, stool softener Hypercalcemia 50155118 E 83.52 noted all his lab we have shows elevated high ionized Ca+ 86600 TIN SOUSA [facility] Internal Medicine [address] [place] [address] 04/02/2023 14:51:20 04/02/2023 15:54:46 Hypercalcemia 91842892 E83.52 has fu with surgeon on Hyperparathyroidism 6699 9008 E21.0 has the surgical consult Panic disorder 099969816 F41.0 Essential hypertension 88306091 I10 stop li Anxiety 31879601 F41.1 will start back on the ativan BID as directed and set up with lexapro 5 mg [id number] Toni Devine DO [facility] Internal Medicine [address] [place] [address] 08/21/2023 08:05:58 08/21/2023 14:29:42 Hyperparathyroidism 79001812 E21.0 parathy surgery successful Essential hypertension 18109928 I10 stable at endo offfice Hypercholesterolemia 136 31283 E78.2 will need fbw Thiamine deficiency 3993 36777 E51.9 vit b1 supp daily with magnesium Primary hypomagnesemia 23832849 E83.42 119707 Toni Devine [facility] Internal Medicine [address] [place] [address] 01/24/2024 15:22:06 01/24/2024 16:13:54 Depression screening 327465650 Z13.31 neg Essential hypertension 83231475 I10 stable at endo offfice Hyperparathyroidism 6699 9008 E21.0 parathy surgery successful Primary hypomagnesemia 56154815 E83.42 stable and followed by endocrinew ill have him get lab next visit [id number] oTni Devine DO [facility] Internal Medicine [address] [facility] [address],[place] [address] 06/19/2024 10:41:45 06/19/2024 14:52:52 Hyperparathyroidism 98113725 E21.0 parathy surgery successful will check lab Hypercholesterolemia 136 46316 E78.2 will need fbw Essential hypertension 06853915 I10 stable at endo offfice will checkk lab Gastroesop hageal reflux disease 838735145 K21.9 cont with omeprazole 40 mg and will have him take a secondary dose in the afternoon Hypothyroidism 44473964 E03.9 will need to rechk tsh etc Health Concerns Section Related Observation LastModified by Organization Detai ls LastModified Time None Recorded Concern Status LastModified by Organization Details LastModified Time None Recorded Advance Directives Directive None Recorded Payers Encounter Date Sequence Insurance Name Policy Number Policy [place] Covered Member ID Bar[place] Member ID Guarantor Name 02/20/2023 2 [place] [facility] [id number] Patrick Orville [id number] Patrick Spain [place] 02/20/2023 1 [place] [employer] Patrick Jacinto [id number] Patrick Jacinto 04/02/2023 2 [place] [facility] ([facility] [id number] Patrick Jacinto [id number] Patrick Jacinto 04/02/2023 1 [place] [employer] Patrick Jacinto [id number] Patrick Jacinto 08/21/2023 2 [place] [facility] ([facility] [id number] Patrick Jacinto [id number] Patrick Spain [place] 08/21/2023 1 [place] [employer] Patrick Jacinto [id number] Patrick [place] 01/24/2024 2 [place] [facility] ([facility] [id number] Patrick Jacinto [id number] Patrick Spain [place] 01/24/2024 1 [place] [facility] Patrick Jacinto [id number] Patrick Jacinto 06/19/2024 2 [facility]: [facility] ([facility] [id number] Patrick Jacinto [id number] Patrick Jacinto 06/19/2024 1 [place] [facility] Patrick Jacinto [id number] Patrick Jacinto Notes Date Note Type Note Provider Name and Address Organization Details Recorded Time 3 text/htm l here for rechk since er visit for the cp he had full work up and was negative for ACS and was disch unfortunately relates he became obstipated whcih required enema in ER whereupon he felt much better taking miralax which at times has caused loose bm so he is going to take qod Toni Devine DO [address] [place], [address], [facility] Internal Medicine 02/20/2023 14:34:54 3 text/htm l ER f/u the patient reports he is having issues with the lisinopril, causing side effectsthe patient agreed to increase amlodipinerestart ativanstart lexaprosurgical consult will up date me saturday TIN SOUSA [address] [place], [address], [facility] Medicine 04/02/2023 15:41:18 4 text/htm l patient is evaluated via tele/video assessment per patient consentduring current pandemic reviewed his recent endocrinolo reports and is doing ok overallfollows and calcium is stable gfr is 54 sp this will need to be followedtaking magnesium, thyroid escitalopram and b vitshes doing goodstates the escitalo and lorazhad parathyroid glands removed on 07 may Toni Devine DO [address] [place], [address], [facility] Medicine 08/21/2023 14:27:38 4 text/htm l Care Management - HypertensionReported bypatient.Self Care:not under emotional stress Severity:symptoms are improving; does not interfere with daily activities Associated Symptoms:no dizziness; no lightheadedness; no chest pain; no shortness of breath; no palpitations; no edema; no calf muscle cramps; no blurred vision; no confusion; no headaches; no fatigue here for rechk and is doing ok overalldiscussed the last few specialists Toni Devine DO [address] [place] [address], [phone], [facility] Medicine 01/24/2024 16:05:25 5 text/htm l Care Management - HypertensionReported bypatient.Self Care:not under emotional stress Severity:symptoms are improving; does not interfere with daily activities Associated Symptoms:no dizziness; no lightheadedness; no chest pain; no shortness of breath; no palpitations; no edema; no calf muscle cramps; no blurred vision; no confusion; no headaches; no fatigue here for rechkfeels well had a recent bout of viral uri Toni Devine DO [address] [place] [address], [phone], [facility] Medicine 06/19/2024 11:24:32
[2024-08-05 13:33] LABS: MANUAL DIFF FLAG NO
[2024-08-05 13:36] LABS: Basophils Percent Auto 0.4 % (0-2); Eosinophils Absolute Auto 0.1 X10*3/uL (0.0-0.4); Eosinophils Percent Auto 1.9 % (0-4); Hematocrit 41.1 % (42.0-52.0); Hemoglobin 13.2 g/dl (14.0-18.0); Imm Gran Abs Auto 0.02 X10*3/uL (0.00-0.03); Imm Gran Pct Auto 0.3 % (0.0-0.4); Lymphocytes Absolute Auto 1.5 X10*3/uL (1.2-4.9); Lymphocytes Percent Auto 21.6 % (20-40); Mean Corpuscular HGB Conc 32.1 g/dl (31.0-36.0); Mean Corpuscular Hemoglobin 28.9 pg (27.0-33.0); Mean Corpuscular Volume 90.1 fL (80.0-98.0); Monocytes Absolute Auto 0.7 X10*3/uL (0.1-1.2); Monocytes Percent Auto 10.3 % (2-11); Neutrophils Absolute Auto 4.5 x10*3/uL (2.0-8.3); Neutrophils Percent Auto 65.5 % (45-73); Platelet Count 212 X10*3/uL (160-400); Red Blood Count 4.56 X10*6/uL (4.60-5.80); Red Cell Distribution Width 13.6 % (11.0-16.0); White Blood Count 6.8 X10*3/uL (4.8-10.8)
[2024-08-05 14:30] LABS: Alanine Aminotransferase 30 U/L (0-40); Alkaline Phosphatase 80 U/L (39-117); Anion Gap 12 (12-20); Aspartate Amino Transferase 31 U/L (5-37); Bilirubin Total 0.7 mg/dL (0.0-1.0); Blood Urea Nitrogen 16 mg/dL (9-16); Calcium 8.4 mg/dL (8.4-10.2); Carbon Dioxide 26 mmol/L (22-29); Chloride 109 mmol/L (96-108); Cholesterol 134 mg/dL (<200); Estimated Glomerular Filt Rate 59; Glucose Random 95 mg/dL (60-115); HDL Cholesterol 27 mg/dL (>40); LDL Cholesterol Calculated 76 mg/dL (<100); Sodium 143 mmol/L (135-145); Total Protein 7.3 g/dL (6.5-8.0); Triglycerides 157 mg/dL (<150)
[2024-08-05 14:46] LABS: Thyroid Stimulating Hormone 4.31 uIU/mL (0.32-4.0)
== END 2024-08-05 07:35 | disposition home or self-care (01) ==
LOC: HO.MANLDS 07:34
PROVIDERS: Visit Provider Internal Medicine
DX: E78.2 Mixed hyperlipidemia (principal); I10 Essential (primary) hypertension; E03.9 Hypothyroidism, unspecified; Z12.5 Encounter for screening for malignant neoplasm of prostate
CPT/HCPCS: 36415; 80053; 80061; 84153; 84443; 85025

== ENCOUNTER 2025-03-12 11:43 | Outpatient (REF) | payer MEDICARE, BC, SELFPAY ==
--- OUTSIDE RECORDS SUMMARY | 2025-03-12 12:50 | XMS_ITS | Encounter Summary ---
Author Organization [facility] Address [address] [place] [address] Phone Care Team Providers Care Safety Trainer Name Role Phone Toni Lamb Primary Care Provider [phone] Toni Lamb Unavailable Encounter Details Date Type Department Care Team (Late st Contact Info) Description 05/18/2019 Procedure Pass [facility] Endoscopy Admitting Dept Virtual Department [address] [place] [address] Social History Tobacco Use Types Packs/Day Years Used Date Smoking Tobacco: Never Smokeless Tobacco: Never Alcohol Use Standard Drinks/Week Comments Yes 0 (1 standard drink = 0.6 oz pur e alcohol) rare use Sex and Gender Information Value Date Recorded Sex Assigned at Male 03/21/2019 10:24 PM EDT Legal Sex Male 9:56 PM EDT Gender Identity Male 03/21/2019 10:24 PM EDT Sexual Orientation Not on file documented as of this encounter Plan of Treatment Not on file documented as of this encounter Visit Diagnoses Not on filedocumented in this encounter Care Teams Safety Trainer Relationship Specialty Start Date End Date Toni Lamb DO PCP - General 03/25/17 Toni Lamb DO [address] [place] [address] Insurance Assigned Provider 10/11/18 documented as of this encounter Additional Source Comments The information contained in this document represents components of the legal health record. It is not the complete legal health record.[facility]
--- OUTSIDE RECORDS SUMMARY | 2025-03-12 12:50 | XMS_ITS | Clinical Summary ---
Author Organization [facility] Address [address] [place] [address] Phone Care Team Providers Care Carton Filling Machine Operator Name Role Phone Toni Lamb DO Primary Care Provider [phone] Allergies No known active allergies Medications metoprolol succinate (TOPROL-XL) 100 MG 24 hr tablet Take 100 mg by mouth daily. 01/09/2023 Active omeprazole (PRILOSEC) 40 MG capsule Take 40 mg by mouth daily. Active amLODIPine (NORVASC) 5 MG tablet Take 5 mg by mouth daily. Active lisinopril (PRINIVIL,ZESTRI L) 10 MG tablet Take 1 tablet (10 mg total) by mouth daily. 30 tablet 1 03/29/2023 Active thiamine (VITAMIN B-1) 100 mg Tab tablet Take 1 tablet (100 mg total) by mouth daily. 30 tablet 03/29/2023 Active multivitamin per tablet Take 1 tablet by mouth daily. 30 tablet 03/28/2023 Active Active Problems Problem Noted Date Diagnosed Date Hypercalcemia 03/25/2023 Assessment & Plan (03/25/2023 8:36 PM EDT): Hypercalcemia -PTH level of 342, ca++ 15.0, Vitamin D 30. -Likely Primary Hyperparathyroidism -Follows with Endocrinology, due for follow up with ENT however not until June -Dr. Pepper was consulted in the ER and will continue following patient, recommended initially IV hydration and Zometa initially, if no response concern calcitonin Plan: IV Zometa administered 2 Liter NS Bolus ordered Continue NS at 250 cc Recheck Ca++, if persistently elevated, recommend calcitonin Dr. Pepper will continue following case Check TSH w/reflex Plan for Ca++ goal of <11.5, with subsequent outpatient follow-up with endocrinology and ENT. Hypophosphatemia 03/25/2023 Assessment & Plan (03/25/2023 8:36 PM EDT): Hypophosphatemia -phosphorus level of 1 -Replete with oral phosphorous at this time. Hyperparathyroidism 03/22/2019 Assessment & Plan (03/22/2019 6:25 PM EDT): Serum calcium 11. PTH 135. Normal 25- vitamin D. Probably primary hyperparathyroidism asymptomatic Outpatient endocrine referral to complete work-up Resolved Problems Problem Noted Date Diagnosed Date Resolved Date Other chest pain 03/22/2019 03/23/2019 Assessment & Plan (03/22/2019 6:28 PM EDT): Atypical chest pain in a highly anxious individual with risk factors. Plan nuclear stress test tomorrow. Discontinue beta-blockade. Discussed with cardiology Family History Medical History Relation Comments Coronary artery disease Brother 2V stent ing at 58 Early CAD Father 5x bypass in his early 50's Coronary artery disease Mother Relation Status Comments Brother Alive Father Mother Social History Tobacco Use Types Packs/Day Years Used Date Smoking Tobacco: Never Smokeless Tobacco: Never Alcohol Use Standard Drinks/Week Comments Yes 0 (1 standard drink = 0.6 oz pur e alcohol) rare use Education Answer Date Recorded Are you interested in more education? Not on alexis e 10/05/2022 Are you concerned about learning? Not on file 10/05/2022 No 10/05/2022 No 10/05/2022 Digital Access Answer Date Recorded No 11/03/2022 No 11/03/2022 No 11/03/2022 Reliable internet access at home? Not on file 11/03/2022 Device with a working camera? Not on file Intimate Partner Violence Answer Date R ecorded Are you denied basic needs s uch as food, clothing, or medical care? No 03/25/2023 In the past 12 months have y ou been in a relationship with a person who hurts, threatens, or tries to control you? No 03/25/2023 Are you denied basic needs s uch as food, clothing, or medical care? No 03/25/2023 In the past 12 months have y ou been in a relationship with a person who hurts, threatens, or tries to control you? No 03/25/2023 Sex and Gender Information Value Date Recorded Sex Assigned at Male 03/21/2019 10:24 PM EDT Legal Sex Male 9:56 PM EDT Gender Identity Male 03/21/2019 10:24 PM EDT Sexual Orientation Not on file Last Filed Vital Signs Vital Sign Reading Time Taken Comments Blood Pressure 159/73 03/29/2023 12:24 AM EDT Pulse 82 03/29/2023 12:24 AM EDT Temperature 37.3 C (99.1 F) 03/29/2023 12:24 AM EDT Respiratory Rate 15 03/29/2023 12:24 AM EDT Oxygen Saturation 100% 03/29/2023 12:24 AM EDT Inhaled Oxygen Concentration - - Weight 89.4 kg (197 lb 3.2 oz) 03/28/2023 6:00 A M EDT Height 185.4 cm (6' 1 ) 03/25/2023 8:33 PM EDT Body Mass Index 26.02 03/25/2023 8:33 PM EDT Plan of Treatment Health Maintenance Due Date Last Done Comments Adult Td,Tdap Booster 1954 DEPRESSION SCREENING 1966 COLOGUARD 1999 COLONOSCOPY 1999 COLORECTAL CANCER SCREENING 1999 FIT TEST 1999 FOBT 1999 SIGMOIDOSCOPY 1999 VIRTUAL COLONOSCOPY 1999 PNEUMOCOCCAL VACCINES (50+ years) (1 of 1 - PCV) 2004 ZOSTER VACCINES (1 of 2) 2004 CREATININE LEVEL 03/29/2024 03/29/2023, , 03/28/2023, Additional history exists POTASSIUM LEVEL 03/29/2024 03/29/2023, 03/10, 03/28/2023, Additional history exists INFLUENZA VACCINE (#1) 2025 COVID-19 VACCINE ( season) 2025 09/08/2020, 08/11/2020 LIPID PANEL 11/22/2025 11/22/2020, 03/22/2019 RSV VACCINE (1 - 1-dose 75+ series) 2029 SMOKING STATUS SCREENING (Once After 26 Yrs) Completed 05/18/2019 HEPATITIS C SCREENING Completed 11/22/2020 HEPATITIS A VACCINES Aged Out No long er eligible based on patient's age to complete this topic HIB VACCINES Aged Out No longer eligi ble based on patient's age to complete this topic MENINGOCOCCAL VACCINES (ACWY) Aged Out No longer eligible based on patient's age to complete this topic MENINGOCOCCAL VACCINES (B) Aged Out N o longer eligible based on patient's age to complete this topic Medical Devices Not on file Procedures Procedure Name Priority Date/Time Associated Diagnosis Comments BASIC METABOLIC PANEL STAT 03/29/2023 12:27 AM EDT LIPID PANEL Routine 03/22/2019 5:59 AM EDT from Last 3 Months or Most Recently Relevant to Health Maintenance Results * (ABNORMAL) Basic metabolic panel (03/29/2023 12:27 AM EDT) SODIUM 144 133 - 146 mmol/L [facility] CHLORIDE 109(H) 96 - 108 mmol/L [facility] POTASSIUM 3.4 3.3 - 5.1 mmol/L [facility] CO2 25 21 - 35 mmol/L [facility] BUN 9 6 - 19 mg/dL [facility] CREATININE 1.40 0.5 - 1.5 mg/dL [facility] GLUCOSE 97 70 - 99 mg/dL [facility] CALCIUM 9.3 8.4 - 10.3 mg/dL [facility] EGFR 55(L) >59 mL/min/1.7 3m2 [facility] Comment:Estimated glomerular filtration rate calculated using the CKD-EPI refit equation. ANION GAP 13 10 - 20 mmol/L [facility] Blood 03/29/2023 12:2 7 AM EDT 03/29/2023 12:30 AM EDT us Sanju Coronel PA-C LAB BLOOD ORDERABLES Final R esult [address] [address] * (ABNORMAL) Lipid panel (03/22/2019 5:59 AM EDT) HDL 32 mg/dL [facility] Comment: Interpretation <40 mg/dL: Low HDL cholesterol (major risk factor for CHD) Greater than or equal to 60 mg/dL: High HDL cholesterol ( negative risk factor for CHD) HDL - cholesterol is affected by a number of factors, e.g. smoking, excerise, hormones, sex and age. CHOLESTEROL 164 0 - 240 mg/dL [facility] TRIGLYCERIDES 190(H) 30 - 160 mg/dL [facility] LDL 94 50 - 129 mg/dL [facility] Comment: LDL levels in terms of risk for coronary heart disease: <100 mg/dL: Optimal 100-129 mg/dL: Near or above optimal 130-159 mg/dL: Borderline high 160-189 mg/dL: High >190 mg/dL: Very High CARDIAC RISK RATIO 5.1(H) 3.4 - 5.0 C [facility] Blood 03/22/2019 5:59 AM EDT 03/22/2019 6:23 AM EDT Abiola Sam MD LAB BLOOD ORDERABLES Final Result [facility] [address] [place] [address] from Last 3 Months or Most Recently Relevant to Health Maintenance Insurance MEDICARE PART A & B [facility] MEDEX SUPPLEMENT MEDICARE PART A & B [employer] MEDEX SUPPLEMENT MEDICARE PART A & B [employer] MEDEX SUPPLEMENT MEDICARE PART A & B [employer] MEDEX SUPPLEMENT MEDICARE PART A & B [employer] MEDEX SUPPLEMENT MEDICARE PART A & B [employer] MEDEX SUPPLEMENT MEDICARE PART A & B [employer] MEDEX SUPPLEMENT MEDICARE PART A & B [employer] MEDEX SUPPLEMENT MEDICARE PART A & B [employer] MEDEX SUPPLEMENT Advance Directives For more information, please contact: [phone] (9AM - 5PM Nena/[facility], Saturday-Saturday) Documents on File Type Date Recorded Patient Marine Equipment Research Engineer Expl anation Healthcare Proxy 03/24/2019 10:13 AM * Full Code (Latest Code Status on File) Date Activated Date Inactivated Comments 03/25/2023 8:44 PM Question Answer Comments Code Status Confirmed With: Patient Code Status Communicated To: Inpatient Attending * Full Code (Confirmed) Date Activated Date Inactivated Comments 03/22/2019 2:12 AM 03/23/2019 7:11 PM Question Answer Comments Code Status Confirmed With: Patient Code Status Communicated To: Inpatient Attending Care Teams Carton Filling Machine Operator Relationship Specialty Start Date End Date Toni Lamb DO PCP - General 03/25/17 Additional Source Comments The information contained in this document represents components of the legal health record. It is not the complete legal health record.[facility]
--- OUTSIDE RECORDS SUMMARY | 2025-03-12 12:50 | XMS_ITS | Encounter Summary ---
Author Organization [facility] Address [address] [place] [address] Phone Care Team Providers Care Tool Repair Technician Name Role Phone Toni Lamb Primary Care Provider [phone] Encounter Details Date Type Department Care Team (Latest Contact Info) Description 05/29/2023 Transcribe Orders Virtual Department [address] [place] [address] Cris Martines PA [address] [place] [address] [place] [address] [place] [address] Right foot pain (Primary Dx) Social History Tobacco Use Types Packs/Day Years [...] on file documented as of this encounter Results * XR FOOT 3 OR MORE VIEWS (RIGHT) (05/30/2023 9:44 AM EST) Anatomical Region Laterality Modality Foot Right Computed Radiogr aphy 05/30/2023 10:2 5 PM EST Impressions 05/30/2023 10:28 PM EST Para-articular gouty erosions along the medial aspect of the first metatarsophalangeal joint and first tarsometatarsal joint. Mild mid and forefoot degenerative change. Narrative 05/30/2023 10:28 PM EST XR FOOT 3 OR MORE VIEWS (RIGHT) Referring clinician's provided indication for this examination in Epic: Outside Radiology Order; RIGHT FOOT PAIN COMPARISON: XR FOOT 3 OR MORE VIEWS (RIGHT) 2020- FINDINGS: No acute fracture or dislocation. Osseous alignment within normal limits. Mild joint space narrowing at the interphalangeal joints, first metatarsophalangeal joint, and tarsometatarsal joints. Persistent osseous erosions along the medial aspect of the first metatarsal joint with overlying soft tissue mineralization. An additional questionable osseous erosion is at the medial aspect of the first tarsometatarsal joint. Ned deformity. Calcific enthesopathy of the Achilles tendon attachment with associated plantar calcaneal spur. Procedure Note Janki Ocampo MD - 05/30/2023 XR FOOT 3 OR MORE VIEWS (RIGHT) Referring clinician's provided indication for this examination in Epic:Outside Radiology Order; RIGHT FOOT PAIN COMPARISON: XR FOOT 3 OR MORE VIEWS (RIGHT) FINDINGS: No acute fracture or dislocation. Osseous alignment within normal limits.Mild joint space narrowing at the interphalangeal joints, firstmetatarsophalangeal joint, and tarsometatarsal joints. Persistent osseous erosions along the medial aspect of the firstmetatarsal joint with overlying soft tissue mineralization. An additionalquestionable osseous erosion is at the medial aspect of the firsttarsometatarsal joint. Ned deformity. Calcific enthesopathy of the Achilles tendon attachmentwith associated plantar calcaneal spur. IMPRESSION: Para-articular gouty erosions along the medial aspect of the firstmetatarsophalangeal joint and first tarsometatarsal joint. Mild mid and forefoot degenerative change. us Cris CASTLE IMG XR LOWER EXTREMITY Estee l Result * XR FOOT 3 OR MORE VIEWS (LEFT) (05/30/2023 9:42 AM EST) Anatomical Region Laterality Modality Foot Left Computed Radiogr aphy 05/30/2023 10:2 2 PM EST Impressions 05/30/2023 10:26 PM EST Suspected gouty erosion along the medial aspect of the first metatarsal head. Mild mid and forefoot degenerative change. No acute osseous abnormality. Narrative 05/30/2023 10:26 PM EST XR FOOT 3 OR MORE VIEWS (LEFT) Referring clinician's provided indication for this examination in Epic: Outside Radiology Order; pain in both feet COMPARISON: None FINDINGS: No acute fracture or dislocation. Osseous alignment within normal limits. Mild joint space narrowing at the first metatarsophalangeal joint, interphalangeal joints, and tarsometatarsal joints. Questionable osseous erosion along the medial aspect of the first metatarsal head with overlying soft tissue mineralization. Ned deformity. Calcific enthesopathy of the Achilles tendon attachment with associated plantar calcaneal spur. Procedure Note Janki Ocampo MD - 05/30/2023 XR FOOT 3 OR MORE VIEWS (LEFT) Referring clinician's provided indication for this examination in Epic:Outside Radiology Order; pain in both feet COMPARISON: None FINDINGS: No acute fracture or dislocation. Osseous alignment within normal limits.Mild joint space narrowing at the first metatarsophalangeal joint,interphalangeal joints, and tarsometatarsal joints. Questionable osseouserosion along the medial aspect of the first metatarsal head withoverlying soft tissue mineralization. Ned deformity. Calcific enthesopathy of the Achilles tendon attachmentwith associated plantar calcaneal spur. IMPRESSION: Suspected gouty erosion along the medial aspect of the first metatarsalhead. Mild mid and forefoot degenerative change. No acute osseous abnormality. Cris CASTLE IMG XR LOWER EXTREMITY Estee l Result documented in this encounter Visit Diagnoses Diagnosis Right foot pain- Primary Pain in soft tissues of limb Right foot pain Pain in soft tissues of limb Right foot pain Pain in soft tissues of limb documented in this encounter Care Teams Tool Repair Technician Relationship Specialty Start Date End Date Toni Lamb DO PCP - General 03/25/17 documented as of this encounter Additional Source Comments The information contained in this document represents components of the legal health record. It is not the complete legal health record.[facility]
--- OUTSIDE RECORDS SUMMARY | 2025-03-12 12:50 | XMS_ITS | Encounter Summary ---
Author Organization [facility] Address [address] [place] [address] [place] [address] Phone Care Team Providers Care Manager Helpdesk Name Role Phone Toni Lamb DO Primary Care Provider Encounter Details Date Type Department Care Team (Latest Contact Info) Description 03/20/2023 Transcribe Orders Virtual Department [address] [place] [phone] Frank Zaragoza MD [address] [place] [phone] [email or web address] Primary hyperparathyroidism (Primary Dx) Social History Tobacco Use Types [...] with a working camera? Not on file Sex and Gender Information Value Date Recorded Sex Assigned at Male 03/21/2019 10:24 PM EDT Legal Sex Male 9:56 PM EDT Gender Identity Male 03/21/2019 10:24 PM EDT Sexual Orientation Not on file documented as of this encounter Plan of Treatment Not on file documented as of this encounter Results * BD DXA SPINE AND HIP WITH FOREARM (12/13/2023 1:24 PM EDT) Anatomical Region Laterality Modality Bone Density Bone Density 12/13/2023 1:20 PM EDT Impressions 12/13/2023 3:41 PM EDT Interpretation: Osteopenia. Narrative 12/13/2023 3:41 PM EDT Referred By: FRANK ZARAGOZA Indications: Primary Hyperparathyroidism Scanner: PST Tankers A with serial# of [id number] located at [facility] Bone Density Scan (DXA) 12/13/23 Details of prior DXA scans are available by clicking View Image BMD T- Z- Skeletal Site gm/cm2 score score BMD Change Since Prior Scan ------ ----- ----- PA Spine (L1-L4) 1.143 0.50 1.30 N/A Total Hip (Left) 0.940 -0.60 0.00 N/A Femoral Neck (Left) 0.729 -1.50 -0.30 N/A Total Hip (Right) 0.936 -0.60 0.00 N/A Femoral Neck (Right) 0.717 -1.60 -0.40 N/A 1/3 Radius (Right) 0.866 0.70 1.90 N/A ------ ----- ----- * Denotes significant change when >= 0.022 g/cm2 for the spine, 0.027 g/cm2 for the total hip, 0.029 g/cm2 for the femoral neck, 0.023 g/cm2 for the forearm (1/3 radius). Interpretation: Osteopenia. Technical Quality: Imaging of all sites was of adequate quality. FRAX: Based on FRAX(r) 3.6 ([place] White male), this patient's likelihood of hip fracture is 1.3% and major osteoporotic fracture is 6.6% over the next 10 years. The patient reported no risks of fracture. Additional Information: -World Health Organization criteria classify adults based on lowest T-score at PA spine, hip or forearm: Normal (T-score >= -1.0), Osteopenia (T-score between -1 and -2.5), or Osteoporosis (T-score <= -2.5). At [facility], T-scores are compared to peak bone density of a young white gender matched reference population. - For premenopausal women and men under the age of 50, Z-scores (comparison to age, gender, and ethnicity matched reference population) are used: Above expected range for age (Z-score >= 2.0), Within expected range of age (Z-score 1.9 to -1.9), or Below expected range for age (Z-score <= -2.0). - The Bone Health and Osteoporosis Foundation recommends that treatment be considered in men aged more than 50 years and in postmenopausal women with ANY of the following: Prior hip or vertebral fractures; T-score of <= -2.5 at the PA spine or hip; or 10 year fracture probability by FRAX of >= 3% for the hip or >= 20% for major osteoporotic fracture. - The FRAX algorithm (https://www.uzma.ac.uk/FRAX/tool.aspx) is designed to predict 10-year fracture risk in treatment-naive adults between the ages of 40 and 90. It is not intended to be used in those receiving pharmacologic osteoporosis treatment. - Including race/ethnicity in the generation of T- or Z-scores or in the FRAX calculation is complicated, and currently undergoing active review to ensure that we can give patients the best information on their risk of fracture. -Some prior studies may not be compatible with our comparison software. -Click on View Full Report to see subsequent pages with images and prior bone density results. Reviewed By: Greg Fitzgerald MD on 12/13/2023 15:41:11 Procedure Note Greg Fitzgerald MD - 12/13/2023 Referred By: FRANK ZARAGOZA Indications: Primary Hyperparathyroidism Scanner: PST Tankers A with serial# of [id number] located at [facility] Bone Density Scan (DXA) 12/13/23 Details of prior DXA scans are available by clicking View Image BMD T- Z- Skeletal Site gm/cm2 score score BMD Change Since Prior Scan ------ ----- PA Spine (L1-L4) 1.143 0.50 1.30 N/A Total Hip (Left) 0.940 -0.60 0.00 N/A Femoral Neck (Left) 0.729 -1.50 -0.30 N/A Total Hip (Right) 0.936 -0.60 0.00 N/A Femoral Neck (Right) 0.717 -1.60 -0.40 N/A 1/3 Radius (Right) 0.866 0.70 1.90 N/A ------ ----- * Denotes significant change when >= 0.022 g/cm2 for the spine, 0.027g/cm2 for the total hip, 0.029 g/cm2 for the femoral neck, 0.023 g/cm2 for the forearm (1/3 radius). Interpretation: Osteopenia. Technical Quality: Imaging of all sites was of adequate quality. FRAX: Based on FRAX(r) 3.6 ([place] White male), this patient's likelihood of hip fracture is 1.3% and major osteoporotic fracture is 6.6% over the next 10 years. The patient reported no risks of fracture. Additional Information: -World Health Organization criteria classify adults based on lowestT-score at PA spine, hip or forearm: Normal (T-score >= -1.0), Osteopenia (T-score between -1 and -2.5), or Osteoporosis (T-score <= -2.5). At [facility], T-scores are compared to peak bone density of a young white gender matched reference population. - For premenopausal women and men under the age of 50, Z-scores(comparison to age, gender, and ethnicity matched reference population) are used:Above expected range for age (Z-score >= 2.0), Within expected range of age (Z-score 1.9 to -1.9), or Below expected range for age (Z-score <= -2.0). - The Bone Health and Osteoporosis Foundation recommends that treatment be considered in men aged more than 50 years and in postmenopausal women with ANY of the following: Prior hip or vertebral fractures; T-score of <= -2.5 at the PA spine or hip; or 10 year fracture probability by FRAX of >= 3%for the hip or >= 20% for major osteoporotic fracture. - The FRAX algorithm (https://www.uzma.ac.uk/FRAX/tool.aspx) is designed to predict 10-year fracture risk in treatment-naive adultsbetween the ages of 40 and 90. It is not intended to be used in those receiving pharmacologic osteoporosis treatment. - Including race/ethnicity in the generation of T- or Z-scores or in the FRAX calculation is complicated, and currently undergoing active review to ensure that we can give patients the best information on their risk of fracture. -Some prior studies may not be compatible with our comparison software. -Click on View Full Report to see subsequent pages with images and prior bone density results. Reviewed By: Greg Fitzgerald MD on 12/13/2023 15:41:11 IMPRESSION: Interpretation: Osteopenia. us Frank Zaragoza MD IMG BD BONE DENSITY DEXA Fi nal Result documented in this encounter Visit Diagnoses Diagnosis Primary hyperparathyroidism- Primary Primary hyperparathyroidism documented in this encounter Care Teams Manager Helpdesk Relationship Specialty Start Date End Date AdonisToni DO Jona [email or web address] PCP - General 03/25/17 documented as of this encounter Additional Source Comments The information contained in this document represents components of the legal health record. It is not the complete legal health record.[facility]
--- OUTSIDE RECORDS SUMMARY | 2025-03-12 12:50 | XMS_ITS | Encounter Summary ---
Author Organization [facility] Address [address] [address] Phone Care Team Providers Care Jig Grinder Name Role Phone Toni Lamb Primary Care Provider [phone] YasminToni prescott Unavailable Encounter Details Date Type Department Care Team (Late st Contact Info) Description 05/29/2021 Transcribe Orders Virtual Department [address] [place] [address] Toni Lamb DO [address] [facility] [place] [address] [email or web address] Right knee pain, unspecified chronicity (Primary Dx); Idiopathic gout, right ankle and foot Social History Tobacco Use Types Packs/Day Years [...] as of this encounter Results * XR KNEE 4 OR MORE VIEWS (RIGHT) (05/31/2021 3:07 PM EST) Anatomical Region Laterality Modality Knee Right Computed Radiogr aphy 05/31/2021 3:24 PM EST Impressions 05/31/2021 3:25 PM EST Quadriceps enthesopathy. Narrative 05/31/2021 3:25 PM EST COMPARISON: None. RIGHT KNEE RADIOGRAPH FINDINGS: 6 images obtained. No acute fracture or malalignment. Joint spaces are preserved. Moderate-sized suprapatellar spur. No destructive or suspicious bone lesions. No joint effusion. No soft tissue swelling. Procedure Note Miguel Jaime MD - 05/31/2021 COMPARISON: None. RIGHT KNEE RADIOGRAPH FINDINGS: 6 images obtained. No acute fracture or malalignment. Joint spaces are preserved.Moderate-sized suprapatellar spur. No destructive or suspicious bonelesions. No joint effusion. No soft tissue swelling. IMPRESSION: Quadriceps enthesopathy. us Toni A Bigda DO IMG XR LOWER EXTREMITY Final Res ult * XR FOOT 3 OR MORE VIEWS (RIGHT) (05/31/2021 3:06 PM EST) Anatomical Region Laterality Modality Foot Right Computed Radiogr aphy 05/31/2021 3:25 PM EST Impressions 05/31/2021 3:29 PM EST 1.No fracture or dislocation. 2.Findings compatible with provided history of gout at the level of the 1st metatarsophalangeal joint. Narrative 05/31/2021 3:29 PM EST XR FOOT 3 OR MORE VIEWS (RIGHT) COMPARISON: None FINDINGS: No fracture. Erosive changes on the medial aspect of the 1st metatarsophalangeal joint. Normal alignment. Joint space narrowing of the 1st metatarsophalangeal joint and multiple interphalangeal joints. Faint calcification of the soft tissue prominence along the medial aspect of the 1st metatarsophalangeal joint. Procedure Note Shimon Castellano MD - 05/31/2021 XR FOOT 3 OR MORE VIEWS (RIGHT) COMPARISON: None FINDINGS: No fracture. Erosive changes on the medial aspect of the 1stmetatarsophalangeal joint. Normal alignment. Joint space narrowing of the1st metatarsophalangeal joint and multiple interphalangeal joints. Faintcalcification of the soft tissue prominence along the medial aspect of the1st metatarsophalangeal joint. IMPRESSION: 1.No fracture or dislocation. 2.Findings compatible with provided history of gout at the level of the1st metatarsophalangeal joint. Toni Lamb DO IMG XR LOWER EXTREMITY Final Res ult documented in this encounter Visit Diagnoses Diagnosis Right knee pain, unspecified chronicity- Primary Idiopathic gout, right ankle and foot Idiopathic gout, right ankle and foot Right knee pain, unspecified chronicity documented in this encounter Care Teams Jig Grinder Relationship Specialty Start Date End Date Toni Lamb DO PCP - General 03/25/17 Toni Lamb DO [address] [place] [id number] Insurance Assigned Provider 10/11/18 documented as of this encounter Additional Source Comments The information contained in this document represents components of the legal health record. It is not the complete legal health record.[facility]
[2025-03-12 18:10] LABS: MANUAL DIFF FLAG NO
[2025-03-12 18:39] LABS: Hematocrit 42.5 % (42.0-52.0); Hemoglobin 14.2 g/dl (14.0-18.0); Imm Gran Abs Auto 0.10 X10*3/uL (0.00-0.03); Imm Gran Pct Auto 1.2 % (0.0-0.4); Lymphocytes Absolute Auto 1.1 X10*3/uL (1.2-4.9); Mean Corpuscular HGB Conc 33.4 g/dl (31.0-36.0); Mean Corpuscular Hemoglobin 29.5 pg (27.0-33.0); Mean Corpuscular Volume 88.2 fL (80.0-98.0); NRBC Abs Auto 0.000 X10*3/uL (0.0-0.012); NRBC Pct Auto 0.0 /100WBC (0.0-0.2); Platelet Count 255 X10*3/uL (160-400); Red Blood Count 4.82 X10*6/uL (4.60-5.80); White Blood Count 8.4 X10*3/uL (4.8-10.8)
[2025-03-12 18:41] LABS: Parathyroid Hormone Intact 29.1 pg/mL (8.7-77.1)
[2025-03-12 18:56] LABS: Prostate Specific Antigen 4.35 ng/mL (<0.05-4.0)
[2025-03-12 19:07] LABS: Alanine Aminotransferase 32 U/L (0-40); Albumin Level 4.5 g/dL (3.5-5.0); Anion Gap 12 (12-20); Aspartate Amino Transferase 30 U/L (5-37); Blood Urea Nitrogen 14 mg/dL (9-16); Calcium 8.4 mg/dL (8.4-10.2); Carbon Dioxide 28 mmol/L (22-29); Chloride 105 mmol/L (96-108); Estimated Glomerular Filt Rate 50; Potassium 4.0 mmol/L (3.3-5.1); Sodium 141 mmol/L (135-145); Thyroid Stimulating Hormone 2.83 uIU/mL (0.32-4.0); Total Protein 7.5 g/dL (6.5-8.0)
[2025-03-12 20:26] LABS: Alkaline Phosphatase 97 U/L (39-117)
== END 2025-03-12 11:44 | disposition home or self-care (01) ==
LOC: HO.MANLDS 11:43
PROVIDERS: Visit Provider Internal Medicine
DX: Z12.5 Encounter for screening for malignant neoplasm of prostate (principal); I10 Essential (primary) hypertension; E03.9 Hypothyroidism, unspecified; E21.0 Primary hyperparathyroidism
CPT/HCPCS: 36415; 80053; 83970; 84153; 84443; 85025